=== PATIENT | male | born 1975 | race Caucasian/White ===

== ENCOUNTER 2016-06-19 23:30 | Emergency (ER) | payer OTHER, SELFPAY ==
[2016-06-19] MEDS ORDERED: Sodium Chloride 0.9% 1000 ML 1,000 ML IV SCH (23:45)
[2016-06-19] MEDS ORDERED: VALIUM 10 MG/2 ML SYRINGE IV ONE (23:57)
[2016-06-20 00:03] LABS: BASOPHIL % 0.3 % (0.0-0.4); Eosinophil % 2.4 % (0.00-5.0); Lymphocytes % 36.9 % (24.0-44.0); Mean Cell Volume 80.1 fl (78-100); Mean Corpuscular Hemoglobin 27.8 pg (26-32); Mean Platelet Volume 10.3 fl (6-9.5); Monocytes % 11.4 % (0.0-12.0); Platelet Count 331 K/mm3 (150-450); Red Blood Count 5.28 M/mm3 (4.1-5.6); Red Cell Distribution Width 13.7 % (11.5-14.0); White Blood Count 7.1 K/mm3 (4.0-10.5)
[2016-06-20] MEDS ORDERED: VALIUM 10 MG/2 ML SYRINGE ONE (00:03)
[2016-06-20] MEDS ORDERED: Sodium Chloride 0.9% 1000 ML 1,000 ML ONE (00:04)
--- NOTE | 2016-06-20 00:06 | ERPHSYRPT ---
- History of Present Illness Time Seen by Provider: 06/19/16 23:45 Source: patient Exam Limitations: no limitations Patient Subjective Stated Complaint: PER EMS PT HAD SEIZURE AT THE [facility]. Triage Nursing Assessment: PT ALERT AND ORIENTED. ANSWERS QUESTIONS APPROP. PT SHAKING ALL OVER, FEET AND LEGS RIGID AT TIMES. SPEECH SLURRED AT TIMES. POSTDOCTORAL SCHOLAR EQUAL AND STRON IN BILAT UPPER EXT. STRENGTH IN BILAT LOWER EXT SLIGHLTY WEAK. RESPIRATIONS NONLABORED AND LUNGS CTA. HEART RATED 115 SINUS RHYTHM ON MONITOR. Physician History: ABOUT 20 MINUTES AGO AT THE [facility] PT HAD A 3-4 MINUTE EPISODE OF SEIZURE ACTIVITY WHERE HIS BODY WAS SHAKING WITHOUT SKIN COLOR CHANGE OR FOAMING AT THE MOUTH. PT NOW HAS NAUSEA, TINNITUS, TREMULOUSNESS AND NUMBNESS OF THE LEFT SIDE OF THE FACE. PT HAS HAD SEIZURES FOR OVER 10 YEARS, WAS PLACED ON DILANTIN WITH AN INCREASE IN SEIZURE FREQUENCY AND RESULTANT DISCONTINUATION OF DILANTIN. PT CURRENTLY IS ON NO ANTI-CONVULSION MEDICATION. PT ALSO STATES 4 DAYS AGO HIS BLOOD PRESSURE DROPPED BELOW 90 SYSTOLIC. PT STATES HE HAD A MILD HEART ATTACK LAST YEAR. Allergies/Adverse Reactions: diclofenac Allergy (Verified 06/19/16 23:50) varenicline tartrate [From Chantix] Allergy (Verified 06/19/16 23:50) Home Medications: Citalopram Hydrobromide [ceLEXa] 20 mg PO DAILY 08/02/15 [History] Prazosin HCl [Minipress] 2 mg PO HS 08/02/15 [History] Lisinopril 10 mg [Zestril 10 MG] 10 mg PO DAILY 06/19/16 [History] Hx Tetanus, Diphtheria Vaccination/Date Given: No Hx Influenza Vaccination/Date Given: No Hx Pneumococcal Vaccination/Date Given: No Immunizations Up to Date: No - Review of Systems Ears, Nose, & Throat: Tinnitus Abdominal/Gastrointestinal: Nausea Neurological: Seizure, Sensory Changes (LEFT FACIAL CHEEK NUMB) All Other Systems: Reviewed and Negative - Past Medical History Pertinent Past Medical History: Yes Cardiac History: Congenital Heart Disease, Coronary Artery Disease, Hypertension Respiratory History: Emphysema Psycho-Social History: Other Other Medical History: PTSD, INSOMNIA, CONGENITAL HEART DEFECT - Past Surgical History Past Surgical History: Yes Musculoskeletal: Orthopedic Surgery Other Surgical History: lt ankle- HARDWARE. rt knee. lt knee. rt hand carpal tunnel - Social History Smoking Status: Current every day smoker How long have you smoked: 20 YRS Exposure to second hand smoke: Yes Drug Use: methamphetamines Patient Lives Alone: No - Nursing Vital Signs Nursing Vital Signs: Initial Vital Signs Temperature 98.2 F Temperature Source Oral Pulse Rate 96 Respiratory Rate 15 Blood Pressure [] 118/79 Pain Intensity 3 - Physical Exam General Appearance: alert Eye Exam: PERRL/EOMI, eyes nml inspection Ears, Nose, Throat Exam: TMs normal, pharynx normal, moist mucous membranes Neck Exam: normal inspection, full range of motion Respiratory Exam: lungs clear Cardiovascular Exam: tachycardia Gastrointestinal/Abdomen Exam: soft, normal bowel sounds Back Exam: normal range of motion Extremity Exam: normal inspection, No pedal edema Neurologic Exam: alert, cooperative, other (OCCASIONAL FINE TREMORS AT REST OF LOWER EXTREMITIES; DECREASED SENSATION OF LEFT FACIAL CHEEK.) Skin Exam: warm, dry SpO2 Interpretation: normal SpO2: 99 Oxygen Delivery: Room Air - Course Nursing assessment & vital signs reviewed: Yes EKG Interpreted by Me: RATE ([id number]), Sinus Tach, NORMAL AXIS, NORMAL INTERVALS - Radiology Exams Chest X-ray Interpretation: Interpreted by me, No Pneumonia - CT Exams Head CT Interpretation: Tele-radiologist Report (NORMAL HEAD/BRAIN CT) Ordered Tests: Active Orders 24 hr Category Date Time Status Supervisor Cytology STAT Care 06/19/16 23:56 Active EKG-ER Only STAT Care 06/19/16 23:56 Active IV Insertion STAT Care 06/19/16 23:56 Active Oxygen-ED Only NASAL CANNULA 2 lpm Care 06/19/16 23:56 Active Pulse Oximetry (ED) STAT Care 06/19/16 23:56 Active CHEST 1 VIEW (PORTABLE) Stat Exams 06/19/16 23:56 Taken HEAD WITHOUT CONTRAST [CT] Stat Exams 06/19/16 23:54 Taken CULTURE,URINE Stat Lab 06/20/16 01:26 Ordered UA W/ MICROSCOPIC Stat Lab 06/19/16 00:48 Completed Urine Triage Profile Stat Lab 06/19/16 00:48 Completed Medication Summary Generic Name Dose Route Start Last Admin Trade Name Freq PRN Reason Stop Dose Admin Sodium Chloride 1,000 mls @ 100 mls/hr 06/19/16 23:45 06/20/16 00:06 Sodium Chloride 0.9% 1000 Ml IV 07/19/16 23:44 100 mls/hr .Q10H EMMA Administration Levetiracetam 500 mg 06/20/16 01:00 06/20/16 01:13 Keppra 500 Mg PO 07/20/16 00:59 500 mg 1XONLY EMMA Administration Discontinued Medications Generic Name Dose Route Start Last Admin Trade Name Talita PRN Reason Stop Dose Admin Acetaminophen 650 mg 06/20/16 01:19 06/20/16 01:22 Tylenol 325 Mg PO 06/20/16 01:20 650 mg STAT ONE Administration Acetaminophen Confirm 06/20/16 01:22 Tylenol 325 Mg Administered 06/20/16 01:23 Dose 650 mg .ROUTE .STK-MED ONE Diazepam 10 mg 06/19/16 23:57 06/20/16 00:06 Valium 10 Mg/2 Ml Syringe IV 06/19/16 23:58 10 mg STAT ONE Administration Diazepam Confirm 06/20/16 00:03 Valium 10 Mg/2 Ml Syringe Administered 06/20/16 00:04 Dose 10 mg .ROUTE .STK-MED ONE Diazepam 10 mg 06/20/16 01:19 06/20/16 01:23 Valium 5 Mg PO 06/20/16 01:20 10 mg STAT ONE Administration Diazepam Confirm 06/20/16 01:22 Valium 5 Mg Administered 06/20/16 01:23 Dose 10 mg .ROUTE .STK-MED ONE Sodium Chloride Confirm 06/20/16 00:04 Sodium Chloride 0.9% 1000 Ml Administered 06/20/16 00:05 Dose 1,000 mls @ ud .ROUTE .STK-MED ONE Trimethoprim/Sulfamethoxazole 1 tab 06/20/16 01:25 Bactrim Ds Tablet PO 06/20/16 01:26 STAT ONE Lab/Rad Data: Laboratory Result Diagrams 06/19/16 00:01 06/19/16 00:01 Laboratory Results 06/19/16 06/19/16 06/19/16 Range/Units 00:48 00:48 00:01 WBC (4.0-10.5) K/mm3 RBC (4.1-5.6) M/mm3 Hgb (12.5-18.0) gm/dl Hct (42-50) % MCV (78-100) fl MCH (26-32) pg MCHC (32-36) g/dl RDW (11.5-14.0) % Plt Count (150-450) K/mm3 MPV (6-9.5) fl Gran % (36.0-66.0) % Lymphocytes % (24.0-44.0) % Monocytes % (0.0-12.0) % Eosinophils % (0.00-5.0) % Basophils % (0.0-0.4) % Basophils # (0-0.4) Sodium (136-145) mEq/L Potassium (3.5-5.1) mEq/L Chloride (98-107) mEq/L Carbon Dioxide (21-32) mEq/L Anion Gap (5-15) MEQ/L BUN (9-20) mg/dL Creatinine (0.55-1.30) mg/dl Estimated GFR ML/MIN Glucose (70-110) MG/DL Calcium (8.5-10.1) mg/dL Magnesium (1.8-2.4) mg/dL Total Bilirubin (0.2-1.0) mg/dL AST (15-37) U/L ALT (12-78) U/L Alkaline Phosphatase (46-116) U/L Troponin I < 0.017 (0.000-0.056) ng/ml Serum Total Protein (6.4-8.2) gm/dL Albumin (3.4-5.0) g/dL Amylase (25-115) U/L Lipase (73-393) U/L Ur Collection Type CLEAN CATCH Urine Color YELLOW (YELLOW) Urine Appearance CLEAR (CLEAR) Urine pH 7.0 (5-6) Ur Specific [place] 1.025 (1.005-1.025) Urine Protein 30 (Negative) Urine Glucose (UA) NEGATIVE (NEGATIVE) mg/dL Urine Ketones NEGATIVE (NEGATIVE) Urine Nitrite NEGATIVE (NEGATIVE) Urine Bilirubin NEGATIVE (NEGATIVE) Urine Urobilinogen 0.2 (0-1) mg/dL Urine WBC (Auto) NEGATIVE (NEGATIVE) Urine RBC (Auto) NEGATIVE (0-5) Ruddy/ul Urine Microscopic RBC 0-2 (0-2) /HPF Urine Microscopic WBC 2-5 (0-5) /HPF Ur Epithelial Cells MODERATE (FEW) /HPF Urine Bacteria MODERATE (NEGATIVE) /HPF Urine Mucus MODERATE (NEGATIVE) /HPF Urine Opiates Level NEG. (NEGATIVE) Ur Methadone NEG. (NEGATIVE) Urine Barbiturates NEG. (NEGATIVE) Ur Phencyclidine (PCP) NEG. (NEGATIVE) Urine Amphetamine NEG. (NEGATIVE) U Benzodiazepine Level NEG. (NEGATIVE) Urine Cocaine NEG. (NEGATIVE) Urine Marijuana (THC) NEG. (NEGATIVE) Specimen Received 06/20/16 0100 06/19/16 06/19/16 Range/Units 00:01 00:01 WBC 7.1 (4.0-10.5) K/mm3 RBC 5.28 (4.1-5.6) M/mm3 Hgb 14.7 (12.5-18.0) gm/dl Hct 42.3 (42-50) % MCV 80.1 (78-100) fl MCH 27.8 (26-32) pg MCHC 34.8 (32-36) g/dl RDW 13.7 (11.5-14.0) % Plt Count 331 (150-450) K/mm3 MPV 10.3 H (6-9.5) fl Gran % 49.0 (36.0-66.0) % Lymphocytes % 36.9 (24.0-44.0) % Monocytes % 11.4 (0.0-12.0) % Eosinophils % 2.4 (0.00-5.0) % Basophils % 0.3 (0.0-0.4) % Basophils # 0.02 (0-0.4) Sodium 139 (136-145) mEq/L Potassium 4.4 (3.5-5.1) mEq/L Chloride 100 (98-107) mEq/L Carbon Dioxide 25.4 (21-32) mEq/L Anion Gap 18.4 H (5-15) MEQ/L BUN 13 (9-20) mg/dL Creatinine 1.00 (0.55-1.30) mg/dl Estimated GFR > 60 ML/MIN Glucose 131 H (70-110) MG/DL Calcium 9.4 (8.5-10.1) mg/dL Magnesium 1.8 (1.8-2.4) mg/dL Total Bilirubin 0.5 (0.2-1.0) mg/dL AST 28 (15-37) U/L ALT 47 (12-78) U/L Alkaline Phosphatase 123 H (46-116) U/L Troponin I (0.000-0.056) ng/ml Serum Total Protein 8.0 (6.4-8.2) gm/dL Albumin 4.1 (3.4-5.0) g/dL Amylase 63 (25-115) U/L Lipase 111 (73-393) U/L Ur Collection Type Urine Color (YELLOW) Urine Appearance (CLEAR) Urine pH (5-6) Ur Specific [place] (1.005-1.025) Urine Protein (Negative) Urine Glucose (UA) (NEGATIVE) mg/dL Urine Ketones (NEGATIVE) Urine Nitrite (NEGATIVE) Urine Bilirubin (NEGATIVE) Urine Urobilinogen (0-1) mg/dL Urine WBC (Auto) (NEGATIVE) Urine RBC (Auto) (0-5) Ruddy/ul Urine Microscopic RBC (0-2) /HPF Urine Microscopic WBC (0-5) /HPF Ur Epithelial Cells (FEW) /HPF Urine Bacteria (NEGATIVE) /HPF Urine Mucus (NEGATIVE) /HPF Urine Opiates Level (NEGATIVE) Ur Methadone (NEGATIVE) Urine Barbiturates (NEGATIVE) Ur Phencyclidine (PCP) (NEGATIVE) Urine Amphetamine (NEGATIVE) U Benzodiazepine Level (NEGATIVE) Urine Cocaine (NEGATIVE) Urine Marijuana (THC) (NEGATIVE) Specimen Received - Departure Time of Disposition: 01:28 Departure Disposition: Detention/Long-Term Clinical Impression: SEIZURE, TACHYCARDIA, DYSESTHESIA, UTI, EMPHYSEMA, CAD, PTSD, INSOMNIA, HTN Condition: Stable Critical Care Time: No Referrals: KEHINDE ROBLEDO MD [Primary Care Provider] - Instructions: Seizure Disorder -- Adult Additional Instructions: FOLLOW UP WITH PRIVATE DOCTOR TOMORROW. START KEPPRA 5OOMG DAILY. Prescriptions: Levetiracetam [Keppra 500 mg ] 500 mg PO DAILY #30 tablet Smz/Tmp Ds Tablet [Bactrim Ds Tablet] 1 udtab PO BID #20 tablet
[2016-06-20 00:18] LABS: ALBUMIN 4.1 g/dL (3.4-5.0); ALKALINE PHOSPHATASE 123 U/L (46-116); ANION GAP 18.4 MEQ/L (5-15); BILIRUBIN,TOTAL 0.5 mg/dL (0.2-1.0); BLOOD UREA NITROGEN 13 mg/dL (9-20); CHLORIDE 100 mEq/L (98-107); Carbon Dioxide 25.4 mEq/L (21-32); Glucose 131 MG/DL (70-110); LIPASE 111 U/L (73-393); MAGNESIUM 1.8 mg/dL (1.8-2.4); Potassium 4.4 mEq/L (3.5-5.1); SGOT/AST 28 U/L (15-37); SGPT/ALT 47 U/L (12-78); SODIUM 139 mEq/L (136-145)
[2016-06-20] MEDS ORDERED: KEPPRA 500 MG PO SCH (01:00)
[2016-06-20] MEDS ORDERED: Valium 5 MG PO ONE (01:19)
[2016-06-20] MEDS ORDERED: TYLENOL 325 MG PO ONE (01:19)
[2016-06-20 01:22] LABS: Bacteria MODERATE /HPF (NEGATIVE); COMPLETE URINE MICROSCOPIC? YES; Collection Type CLEAN CATCH; Epithelial Cells MODERATE /HPF (FEW); Mucus MODERATE /HPF (NEGATIVE)
[2016-06-20] MEDS ORDERED: TYLENOL 325 MG ONE (01:22)
[2016-06-20] MEDS ORDERED: Valium 5 MG ONE (01:22)
[2016-06-20] MEDS ORDERED: BACTRIM DS TABLET PO ONE ×2 (01:25→01:30)
[2016-06-20 02:02] VITALS: BP 116/65; PULSE 95; O2SAT 97
--- NOTE | 2016-06-20 08:57 | XRAY ---
Indication: Chest pain and tachycardia. Comparison: July 13, 2007 Portable apical lordotic chest again demonstrates normal heart and lungs. Bony thorax intact again with old left eighth rib fracture.
--- NOTE | 2016-06-20 08:59 | XRAY ---
Indication: Left facial drooping. Seizure. Multiple contiguous axial images obtained through the head without contrast. Comparison: None Normal-appearing brain parenchyma, ventricles, and bony calvarium. Mild mucosal thickening of both visualized ethmoid and sphenoid sinuses. Mastoid air cells are clear. Impression: No acute intracranial abnormalities. Incidental paranasal sinus disease. Comment: Preliminary interpretation was made by [facility]. No critical discrepancy. CT DI 62.53
== END 2016-06-20 01:50 | disposition home or self-care (01) ==
LOC: ED 23:30
DX: R56.9 Unspecified convulsions (principal); R00.0 Tachycardia, unspecified; R20.8 Other disturbances of skin sensation; N39.0 Urinary tract infection, site not specified; J43.9 Emphysema, unspecified; I25.10 Atherosclerotic heart disease of native coronary artery without angina pectoris; F43.10 Post-traumatic stress disorder, unspecified; G47.00 Insomnia, unspecified; I10 Essential (primary) hypertension
CPT/HCPCS: 36000; 36415; 70450; 71010; 80053; 80307; 81000; 82150; 83690; 83735; 84484; 85025; 87086; 93005; 93041; 96360; 96361; 96374; 99284; J3360

== ENCOUNTER 2019-01-17 13:29 | Emergency (ER) | payer MEDICAID, SELFPAY ==
[2019-01-17] MEDS ORDERED: Hydromorphone 1 mg/ml Ampule IM ONE (14:21)
--- NOTE | 2019-01-17 14:22 | ERPHSYRPT ---
- History of Present Illness Historian: patient Exam Limitations: no limitations Timing/Duration: today, hour(s) (2), other (chronic issue over the past two years) Activities at Onset: activity Quality: sharpness Abdominal Pain Onset Location: periumbilical Pain Radiation: no radiation Severity of Pain-Max: severe Severity of Pain-Current: severe Modifying Factors: Improves With: coughing, lying down, movement. Worsens With : eating Associated Symptoms: No chest pain, No diaphoresis, No diarrhea, No fever/chills , No fatigue, No headache, No heartburn, No loss of appetite, No nausea, No neck pain, No rash, No shortness of breath, No syncope, No testicular pain, No vomiting, No weakness Previous symptoms: same symptoms as today, other (patient has a history of an umbilical hernia, no treatments over the past two years. Pain worsened while up on a ladder working on a pole barn) Allergies/Adverse Reactions: diclofenac Allergy (Verified 01/17/19 14:31) varenicline tartrate [From Chantix] Allergy (Verified 01/17/19 14:31) Home Medications: Lisinopril 10 mg [Zestril 10 MG] 10 mg PO DAILY 06/19/16 [History] Bupropion HCl 150 mg Sr [Wellbutrin SR 150 MG] 150 mg PO BID 01/17/19 [ History] Hx Tetanus, Diphtheria Vaccination/Date Given: No Hx Influenza Vaccination/Date Given: No Hx Pneumococcal Vaccination/Date Given: No - Review of Systems Constitutional: No Fever, No Chills Eyes: No Symptoms Ears, Nose, & Throat: No Symptoms Respiratory: No Cough, No Dyspnea Cardiac: No Chest Pain, No Edema, No Syncope Abdominal/Gastrointestinal: Abdominal Pain, No Nausea, No Vomiting, No Diarrhea , No Constipation, No Hematemesis, No Hematochezia, No Melena Genitourinary Symptoms: No Dysuria, No Hematuria, No Urinary Retention, No Flank Pain, No Testicle Pain Musculoskeletal: No Back Pain, No Neck Pain Skin: No Rash Neurological: No Dizziness, No Focal Weakness, No Sensory Changes Psychological: No Symptoms, No Alcohol Abuse Endocrine: No Symptoms Hematologic/Lymphatic: No Easy Bleeding, No Easy Bruising All Other Systems: Reviewed and Negative - Past Medical History Pertinent Past Medical History: Yes Cardiac History: Congenital Heart Disease, Coronary Artery Disease, Hypertension Respiratory History: Emphysema Psycho-Social History: Other Other Medical History: PTSD, INSOMNIA, CONGENITAL HEART DEFECT - Past Surgical History Past Surgical History: Yes Musculoskeletal: Orthopedic Surgery Other Surgical History: lt ankle- HARDWARE. rt knee. lt knee. rt hand carpal tunnel - Social History Smoking Status: Current every day smoker How long have you smoked: 20 YRS Exposure to second hand smoke: Yes Drug Use: methamphetamines Patient Lives Alone: No - Nursing Vital Signs Nursing Vital Signs: Initial Vital Signs Temperature 97.7 F 01/17/19 14:16 Pulse Rate 91 H 01/17/19 14:16 Respiratory Rate 22 01/17/19 14:16 Blood Pressure 129/91 01/17/19 14:16 O2 Sat by Pulse Oximetry 98 01/17/19 14:16 Pain Scale Pain Intensity 9 - Physical Exam General Appearance: no apparent distress, alert Eye Exam: PERRL/EOMI, eyes nml inspection Ears, Nose, Throat Exam: pharynx normal, moist mucous membranes Neck Exam: normal inspection, non-tender, supple, full range of motion Respiratory Exam: normal breath sounds, lungs clear, No respiratory distress Cardiovascular Exam: regular rate/rhythm, normal heart sounds Gastrointestinal/Abdomen Exam: soft, tenderness, hernia, other (small, easily reducible right side periumbilical hernia with no signs of entrapped bowel on examination), No mass, No rebound Male Genitalia Exam: No hernia Back Exam: normal inspection, normal range of motion, No CVA tenderness, No vertebral tenderness Extremity Exam: normal inspection, normal range of motion, pelvis stable Neurologic Exam: alert, oriented x 3, cooperative, normal mood/affect, nml cerebellar function, sensation nml, No motor deficits Skin Exam: normal color, warm, dry - Course Nursing assessment & vital signs reviewed: Yes Ordered Tests: Medication Summary Discontinued Medications Generic Name Dose Route Start Last Admin Trade Name Freq PRN Reason Stop Dose Admin Hydromorphone HCl 1 mg 01/17/19 14:21 01/17/19 14:39 Hydromorphone 1 Mg/Ml Ampule IM 01/17/19 14:22 1 mg STAT ONE Administration Hydromorphone HCl Confirm 01/17/19 14:36 Hydromorphone 1 Mg/Ml Ampule Administered 01/17/19 14:37 Dose 1 mg .ROUTE .STK-MED ONE - Progress Progress: improved, re-examined Progress Note: 01/17/19 15:52 Patient's pain resolved after IM Dilaudid. Patient has no entrapment of any bowel into his umbilical hernia on repeat examination, with no rebound, no guarding and rigidity on repeat examination Counseled pt/family regarding: diagnosis, need for follow-up - Departure Departure Disposition: Home Clinical Impression: Elevated blood pressure reading without diagnosis of hypertension Umbilical hernia without mention of obstruction or gangrene Qualifiers: Obstruction and gangrene presence: without obstruction or gangrene Qualified Code(s): K42.9 - Umbilical hernia without obstruction or gangrene Condition: Good Critical Care Time: No Referrals: KEHINDE ROBLEDO MD [Primary Care Provider] - Instructions: Abdominal Wall Hernias Plan of Treatment: Follow-up with his surgeon of choice in his hometown of [place], [place]
[2019-01-17 14:31] VITALS: O2SAT 98
[2019-01-17] MEDS ORDERED: Hydromorphone 1 mg/ml Ampule ONE (14:36)
[2019-01-17 14:59] VITALS: PULSE 85
[2019-01-17 16:20] VITALS: BP 139/99
== END 2019-01-17 16:18 | disposition home or self-care (01) ==
LOC: ED 13:29
DX: R03.0 Elevated blood-pressure reading, without diagnosis of hypertension (principal); K42.9 Umbilical hernia without obstruction or gangrene
CPT/HCPCS: 96372; 99283; J1170